=== PATIENT | female | born 1970 | race Two or more races ===

== ENCOUNTER 2018-08-15 06:14 | Emergency (ER) | payer MEDICAID ==
[2018-08-15 06:53] LABS: URINE SOURCE CLEAN C
[2018-08-15 06:58] LABS: URINE BILIRUBIN NEGATIVE (NEGATIVE); URINE BLOOD SMALL (NEGATIVE); URINE GLUCOSE (UA) NEGATIVE (NEGATIVE); URINE KETONE NEGATIVE (NEGATIVE); URINE LEUKOCYTE ESTERASE NEGATIVE (NEGATIVE); URINE MICROSCOPIC INDICATED? YES; URINE NITRATE NEGATIVE (NEGATIVE); URINE PROTEIN NEGATIVE (NEGATIVE); URINE UROBILINOGEN 0.2 E.U./dL (0.2 - 1.0)
--- NOTE | 2018-08-15 07:10 | ED Physician Chart ---
ED Chief Complaint/HPI - Patient Information Date Seen:: 08/15/18 Time Seen:: 06:20 Chief Complaint:: metal object in vagina History of Present Illness:: metal object in vagina Allergies:: Allergies Allergy/AdvReac Type Severity Reaction Status Date / Time No Known Allergies Allergy Verified 08/15/18 06:28 Vitals:: Vital Signs - 8 hr 08/15/18 06:20 Temp 98.2 F HR 75 RR 18 BP 146/73 O2 Sat % 99 Historian:: Patient Review:: Nurse's Note Reviewed ED Review of Systems - Review of Systems General/Constitutional: No fever, No chills, No weight loss, No weakness, No diaphoresis, No edema, No loss of appetite Skin: No skin lesions, No rash, No bruising Head: No headache, No light-headedness Eyes: No loss of vision, No pain, No diplopia ENT: No earache, No nasal drainage, No sore throat, No tinnitus Neck: No neck pain, No swelling, No thyromegaly, No stiffness, No mass noted Cardio Vascular: No chest pain, No palpitations, No PND, No orthopnea, No edema Pulmonary: No SOB, No cough, No sputum, No wheezing GI: No nausea, No vomiting, No diarrhea, No pain, No melena, No hematochezia, No constipation, No hematemesis G/U: No dysuria, No frequency, 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 Head: Other (metal object in vagina) Musculoskeletal: No bone or joint pain, No back pain, No muscle pain Endocrine: No polyuria, No polydipsia Psychiatric: No prior psych history, No depression, No anxiety, No suicidal ideation Hematopoietic: No bruising, No lymphadenopathy Allergic/Immuno: No urticaria, No angioedema Neurological: No syncope, No focal symptoms, No weakness, No paresthesia, No headache, No seizure, No dizziness, No confusion, No vertigo ED Past Medical History - Past Medical History Obtainable: Yes Past Medical History: No significant medical hx Family Medical History - Family Member Mother Living Status: Still Living Hx Family Diabetes: Yes ED Physical Exam - Physical Examination General/Constitutional: Awake, No distress Other Gen/Cons comments:: morbidly obese Head: Atraumatic Skin: Nl inspection, No rash ENMT: External ears, nose nl Neck: Nontender, No nuchal rigidity Respiratory: Nl effort/Exclusion, Clear to Auscultation, No Wheeze/Rhonchi/Rales Cardio Vascular: RRR, No murmur, gallop, rubs, NL S1 S2 GI: No tenderness/rebounding/guarding, No organomegaly, No hernia, Normal BS's, Nondistended, No mass/bruits Other comments:: jumps in a melodramatic manner with left flank pain. pelvic exam performed with lit speculum; no foreign body. positive off white vaginal discharge. sent for wet mount and culture. bimanual performed: no foreign body Extremities: No tenderness or effusion, Full ROM, normal strength in all extremities Neuro/Psych: Alert/oriented Misc: Normal back ED Labs/Radiology/EKG Results - Lab Results Results: Laboratory Tests 08/15/18 06:30 Urine Test NEGATIVE ED Assessment - Assessment General Assessment: sign out given to Dr. Islas. ED Septic Shock - . Is Septic Shock (SBP<90, OR Lactate>4 mmol\L) present?: No - <6hrs of presentation: Vital Signs: Vital Signs - 8 hr 08/15/18 06:20 Temp 98.2 F HR 75 RR 18 BP 146/73 O2 Sat % 99 ED Reassessment (Disposition) - Reassessment Reassessment Condition:: Unchanged - Patient Disposition Condition at Disposition:: Stable, Unchanged
[2018-08-15 07:13] LABS: URINE CLARITY CLEAR (CLEAR); URINE COLOR YELLOW
[2018-08-15 07:14] LABS: URINE BACTERIA OCCASIONAL /hpf (NONE SEEN); URINE EPITHELIAL CELLS MANY /lpf (FEW); URINE RBC 0-2 /hpf (0-5); URINE WBC 0-2 /hpf (0-5)
[2018-08-15 07:27] LABS: AMPHETAMINE URINE POSITIVE (NEGATIVE); BARBITURATES URINE NEGATIVE (NEGATIVE); PHENCYCLIDINE (PCP) URINE NEGATIVE (NEGATIVE)
[2018-08-15 07:28] LABS: COCAINE METABOLITE QUAL URINE NEGATIVE (NEGATIVE); METHADONE URINE NEGATIVE (NEGATIVE); METHAMPHETAMINES QUAL URINE NEGATIVE (NEGATIVE); OPIATES (MORPHINE) QUAL. URINE NEGATIVE (NEGATIVE); TRICYCLICS (TCA) QUAL. URINE NEGATIVE (NEGATIVE)
[2018-08-15 07:29] LABS: CANNABINOID THC POSITIVE (NEGATIVE)
[2018-08-15 07:30] LABS: BENZODIAZEPINES QUAL URINE NEGATIVE (NEGATIVE)
== END 2018-08-15 07:34 | disposition left against medical advice (07) ==
LOC: ER 06:14
DX: T19.2XXA Foreign body in vulva and vagina, initial encounter (principal); F19.10 Other psychoactive substance abuse, uncomplicated; X58.XXXA Exposure to other specified factors, initial encounter; Y93.89 Activity, other specified; Y92.89 Other specified places as the place of occurrence of the external cause; Y99.8 Other external cause status
CPT/HCPCS: 80307; 81001-TC; 81025-TC; 87070-90; 87210-TC; Z7502

== ENCOUNTER 2018-12-05 01:16 | Emergency (ER) | payer MEDICAID ==
--- NOTE | 2018-12-05 02:04 | ED Physician Chart ---
ED Chief Complaint/HPI - Patient Information Date Seen:: 12/05/18 Time Seen:: 02:00 Chief Complaint:: ok to book History of Present Illness:: 48 yr old female here for ok to book Allergies:: Allergies Allergy/AdvReac Type Severity Reaction Status Date / Time No Known Allergies Allergy Verified 08/15/18 06:28 Vitals:: Vital Signs - 8 hr 12/05/18 01:27 Temp 98.1 F HR 61 RR 18 BP 146/96 O2 Sat % 100 ED Review of Systems - Review of Systems General/Constitutional: No fever, No chills, No weight loss, No weakness, No diaphoresis, No edema, No loss of appetite Skin: No skin lesions, No rash, No bruising Head: No headache, No light-headedness Eyes: No loss of vision, No pain, No diplopia ENT: No earache, No nasal drainage, No sore throat, No tinnitus Neck: No neck pain, No swelling, No thyromegaly, No stiffness, No mass noted Cardio Vascular: No chest pain, No palpitations, No PND, No orthopnea, No edema Pulmonary: No SOB, No cough, No sputum, No wheezing GI: No nausea, No vomiting, No diarrhea, No pain, No melena, No hematochezia, No constipation, No hematemesis G/U: No dysuria, No frequency, No hematuria Musculoskeletal: No bone or joint pain, No back pain, No muscle pain Endocrine: No polyuria, No polydipsia Psychiatric: No prior psych history, No depression, No anxiety, No suicidal ideation Hematopoietic: No bruising, No lymphadenopathy Allergic/Immuno: No urticaria, No angioedema Neurological: No syncope, No focal symptoms, No weakness, No paresthesia, No headache, No seizure, No dizziness, No confusion, No vertigo ED Past Medical History - Past Medical History Past Medical History: No significant medical hx Family Medical History - Family Member Mother History Unknown: Yes Living Status: Still Living Hx Family Diabetes: Yes ED Assessment - Assessment General Assessment: ok to book ED Septic Shock - . Is Septic Shock (SBP<90, OR Lactate>4 mmol\L) present?: No - <6hrs of presentation: Vital Signs: Vital Signs - 8 hr 12/05/18 01:27 Temp 98.1 F HR 61 RR 18 BP 146/96 O2 Sat % 100 ED Reassessment (Disposition) - Reassessment Reassessment:: ok to book Reassessment Condition:: Unchanged - Diagnosis Diagnosis:: ok to book medically cleared - Patient Disposition Discharge/Transfer:: Alf/Group Home Condition at Disposition:: Stable
== END 2018-12-05 01:55 | disposition still patient (30) ==
LOC: ER 01:16
DX: Z00.00 Encounter for general adult medical examination without abnormal findings (principal)
CPT/HCPCS: Z7502